=== PATIENT | male | born 1950 | race Caucasian/White ===

== ENCOUNTER 2016-08-30 13:12 | Inpatient (IN) ==
[2016-08-30] MEDS ORDERED: ENOXAPARIN 100 MG/ML SYRINGE SUBCUT STA (13:42)
[2016-08-30] MEDS ORDERED: ASPIRIN 325 MG TABLET PO STA (13:42)
[2016-08-30] MEDS ORDERED: NITROGLYCERIN 2% OINT 1 INCH/GM PACK TOP STA (13:42)
[2016-08-30] MEDS ORDERED: MORPHINE 2 MG/1 ML SYRINGE IV PRN (13:42)
[2016-08-30] MEDS ORDERED: ONDANSETRON 4 MG/2 ML VIAL IV PRN ×2 (13:42→16:32)
[2016-08-30] MEDS ORDERED: NITROGLYCERIN SL 0.4 MG TABLET SL PRN ×2 (13:42→16:39)
--- NOTE | 2016-08-30 13:46 | EKG Report ---
Stationary ECG Study [facility] ER Test Date: 08/30/2016 1:25:14 PM Pat Name: ATILIO NOLAN Department: Room: 285 Gender: M Assembler Surgical Garment: Martin Tabares : 1950 Requested by: Ty Cordero Order Number: [id number] Reading MD: TREVON MEJIA Intervals [place] Rate: 56 P: 64 W[place]: 194 QRS: 94 QRSD: 99 T: 102 QT: 441 QTc: 434 Interpretive Statements SINUS BRADYCARDIA MODERATE RIGHT AXIS DEVIATION Electronically Signed On 08-31-16 08:59:34 CDT by TREVON MEJIA [email or web address]
--- NOTE | 2016-08-30 14:02 | XRay Report ---
XR chest 2V Indication: Chest pain. Comparison: Chest x-ray 12/13/2015. Technique: PA and lateral chest x-ray was performed. Findings: The heart size appears within normal limits. Previous sternotomy is demonstrated. Pulmonary vasculature demonstrates no specific abnormality. Hilar structures demonstrate fairly symmetric appearance. The lungs appear clear. Bones and soft tissues demonstrate no evidence of acute pathology. Impression: 1. No active cardiopulmonary disease. 08/30/2016 1:59 PM PROCEDURE INTERPRETED AT [facility] DEPARTMENT OF RADIOLOGY Final Report Signed by: Dr. Gómez Maravilla
--- NOTE | 2016-08-30 14:07 | Emergency Department Note ---
Cee King Hilary, am scribing for, and in the presence of, Ty Robbins MD 13: 51. Itzel King James D, MD, personally performed the services described in this documentation, ascribed by Ana Mike in my presence, and it is both accurate and complete . Arrival - Arrival Chief Complaint: Chest Pain Stated Complaint: chest pain ED Nursing Triage Note: Left sided chest pain onset x 3 days with radiation to left side of neck - pt states that this is the same pain that he had when he had his stents placed per Dr Spears. Took 3 nitro [employer] Mode of Arrival: Ambulatory Limitations: No Limitations Source: Patient, RN Notes Reviewed Time Seen by Provider: 08/30/16 13:38 - History of Present Illness HPI Narrative: Pt is a 66 y/o white male presenting to the ED with c/o chest pain which onset 3 days ago. Pt reports that he picked up something heavy and just assumed he pulled a muscle but then the pain started to radiate to the left side of neck; which is the same pain that he felt when he had his stents placed in per Dr. Spears. He confirms nausea, SOB, chest pain but denies vomiting. Pt has a PMHx of HTN, CAD, Cardiovascular problems, Peripheral neuropathy, dyslipidemia, thyroid disorder, NIDDM. No other complaints or problems stated in the ED. Onset (ago): day(s) Allergies/Adverse Reactions: Allergies Allergy/AdvReac Type Severity Reaction Status Date / Time Neuromuscular Blockers, AdvReac Intermediate Irritable Verified 08/25/14 08:41 Steroidal [Steroidal Neuromuscular Blockers] steroids Allergy Unknown Unknown/Unable Uncoded 08/26/15 07:02 to obtain Home Medications: Home Medications Medication Instructions Recorded Confirmed Type Aspirin [Ecotrin] 325 mg PO QAM 08/24/14 08/30/16 History Atorvastatin Calcium [Lipitor] 80 mg PO QPM 08/24/14 08/30/16 History Cinnamon Bark [Cinnamon] 500 mg PO BID 08/24/14 08/30/16 History Fluoxetine [PROzac] 20 mg PO QAM 08/24/14 08/30/16 History Fluticasone 50 Mcg Nasal [place] 2 spray BOTH NARES DAILY PRN 08/24/14 08/30/16 History [Flonase Nasal [place]] Furosemide 20 mg PO DAILY PRN 08/24/14 08/30/16 History Levothyroxine Tab [Synthroid Tab] 175 mcg PO DAILY@0700 08/24/14 08/30/16 History Losartan [Cozaar] 50 mg PO QPM 08/24/14 08/30/16 History Metformin HCl [Metformin HCl ER] 1,000 mg PO BID 08/24/14 08/30/16 History Multivitamin [Multivitamins] 1 each PO QAM 08/24/14 08/30/16 History Nitroglycerin Sl Tab [Nitrostat] 0.4 mg SL Q5M PRN 08/24/14 08/30/16 History Pregabalin [Lyrica] 75 mg PO QPM 08/24/14 08/30/16 History Terazosin [Hytrin] 2 mg PO BEDTIME 08/24/14 08/30/16 History Zolpidem Tartrate [Ambien] 10 mg PO BEDTIME PRN 08/24/14 08/30/16 History glipiZIDE [Glipizide Xl] 5 mg PO AC BREAKFAST 08/24/14 08/30/16 History Potassium Chloride [Klor-Con 8] 8 meq PO DIRECTED PRN 08/26/15 08/30/16 History Metoprolol Tartrate 25 mg PO BID 12/13/15 08/30/16 History [place]-3 Fatty Acids [Fish Oil] 1,000 mg PO BID 12/13/15 08/30/16 History Benzonatate 100 mg PO BID PRN 08/30/16 08/30/16 History Cetirizine/Pseudoephed 5-120 1 tablet PO DAILY PRN 08/30/16 08/30/16 History [ZyrTEC D Tab] Clopidogrel [Plavix] 75 mg PO QAM 08/30/16 08/30/16 History Pseudoephedrine [Sudafed] 30 mg PO Q4-6H PRN 08/30/16 08/30/16 History Review of System - Review of System 12 point system: reviewed and no additional remarkable complaints except as stated - Review of System Constitutional: Absent: diaphoresis, fever Respiratory: Present: respiratory distress (SOB) Cardiovascular: Present: chest pain Gastrointestinal: Present: nausea. Absent: vomiting Medical,Surgical,& Family Hx - Medical History Cardio: History of: CAD, Hypertension, Cardiovascular Problems Neurology: History of: Peripheral Neuropathy No history of: Seizures HEENT: No history of: Glaucoma Endocrine: History of: Diabetes Mellitus (NIDDM), Dyslipidemia, Thyroid Disorder Respiratory: History of: Obstructive Sleep Apnea (uses bipap) Genitourinary: History of: Prostate Problems (bph) Gastrointestinal: History of: GERD, Polyps Musculoskeletal: History of: Back/Neck Problems (back problems, degenerative disk disease) Other: No history of: Anesthesia Reactions - Surgical History Cardiac Surgeries: Sugical HX of: Cardiac Catheterization, Cardiac Surgery ( ptca with stent, cabg in 2002) HEENT Surgeries: Surgical HX of: Thyroid Surgery (thyroidectomy - goiter) Patient denies: Eye Surgery, Tonsilectomy & Adenoidectomy Abdominal Surgeries: Surgical HX of: Cholecystectomy, Colonoscopy, EGD Patient denies: Appendectomy Reproductive Surgeries: Patient denies;: Genitourinary Surgery Orthopedic Surgeries: Patient denies;: Orthopedic Surgery - Family History Family History: Reports;: Family Cancer (uncle-colon) - Social History Smoking Status: Former smoker Frequency of Alcohol Use: None Type of Drug Use: None Functional capacity: independent ambulation Exam Physical Examination: GENERAL: This is well-developed, in no apparent distress. VITAL SIGNS: Temperature: 97.4 Pulse: 62 Respiratory: 20 Blood Pressure : 117/80 O2Sat: 98 HEENT: Head is normocephalic and atraumatic. Pupils are equally round and reactive to light. Extraocular movement are intact. Oropharynx is benign with moist mucous membranes. NECK: Neck is soft and supple without tenderness. There are no masses. There is no lymphadenopathy. LUNGS: Lungs are clear to auscultation bilaterally. Chest rises symmetrically. There is no chest wall tenderness. CV: Heart is regular rate and rhythm without murmurs, rubs, or gallops. ABDOMEN: Abdomen is soft, non-tender to palpation. There are no abnormal masses palpated. There is no organomegaly. Bowel sounds are present and active. SKIN: Skin is warm and dry. No rash. EXTREMITIES: Patient has full range of motion without tenderness. There is no pedal edema. NEUROLOGIC: Awake, alert, and oriented x4. Cranial nerves II through XII are grossly intact. There are no motorsensory deficits. PSYCHIATRIC: Normal affect. Normal mood. Vital Signs: Vital Signs Temperature 97.4 F L 08/30/16 13:19 Pulse Rate 62 08/30/16 13:19 Respiratory Rate 20 08/30/16 13:19 Blood Pressure 117/80 08/30/16 13:19 O2 Sat by Pulse Oximetry 98 08/30/16 13:19 Course - Consultations Consultation #1: Discussed with Dr. Coles. He will see the patient in the emergency department. Time: 15:24 Results - Labs CBC & BMP: 08/30/16 14:00 08/30/16 14:00 Lab Results: I have reviewed the patients labs Labs: Laboratory Tests 08/30/16 08/30/16 14:00 14:00 WBC 6.2 RBC 3.72 L Hgb 11.6 L Hct 34.1 L Urine Color Yellow Urine Appearance Clear Urine Urobilinogen < 2.0 H Laboratory Tests 08/30/16 14:00 Sodium 141 Potassium 4.3 Chloride 106 Carbon Dioxide 27 Glucose 128 H Total Protein 6.3 L - EKG EKG results: interpreted by ERMD - Impressions EKG: Sinus bradycardia with a rate of 56, right axis deviation, nonspecific ST- T wave changes. - Diagnostic Findings Procedure: Chest x-ray: image reviewed by me (No infiltrates, no pleural effusions.) Disposition Clinical Impression: Chest pain, Coronary artery disease, Essential hypertension Case discussed with: patient Disposition: Still a Patient Condition: Stable
[2016-08-30] MEDS ORDERED: ENOXAPARIN 120 MG/0.8 ML SYRINGE SUBCUT ONE (14:11)
[2016-08-30] MEDS ORDERED: NITROGLYCERIN 2% OINT 1 INCH/GM PACK TOP ONE (14:11)
[2016-08-30] MEDS ORDERED: ASPIRIN 325 MG TABLET ONE (14:11)
[2016-08-30 14:21] LABS: Basophils % 0.5 % (0.0-0.8); Eosinophils # 0.3 10*3/uL (0.0-0.87); Eosinophils % 5.3 % (0.00-10.9); Hematocrit 34.1 VOL% (42.0-52.0); Hemoglobin 11.6 GM/DL (14.0-18.0); Immature Granulocytes % 0.6 %; Immature Granulocytes Absolute 0.04 #; Lymphocytes # 2.1 10*3/uL (1.4-4.0); Lymphocytes % 33.9 % (21.2-54.2); Mean Corpuscular Hemoglobin 31 PG (27-34); Mean Corpuscular Volume 91.7 FL (87-102); Mean Platelet Volume 10.7 FL (9.6-12.0); Monocytes # 0.4 10*3/uL (0.11-0.8); Monocytes % 6.9 % (1.7-12.7); Neutrophils # 3.3 10*3/uL (1.4-7.4); Neutrophils % 52.8 % (38.7-73.9); Platelet Count 225 T/CUMM (130-400); Red Blood Count 3.72 MC/CUMM (3.8-5.5); Red Cell Distribution Width 12.7 % (9.3-17.3); White Blood Count 6.2 T/CUMM (4-12)
[2016-08-30 14:26] LABS: Apearance,Urine CLEAR (Clear); Bilirubin,Urine Negative (Negative); Blood, Urine Negative (Negative); Glucose,Urine (UA) Negative (Negative); Ketones,Urine Negative (Negative); Nitrite,Urine Negative (Negative); Protein,Urine Negative; RBC,Urine <1 /HPF (0-4); Urine Color Yellow (Yellow); Urine Specific Gravity 1.011 (1.001-1.035); Urine Urobilinogen < 2.0 EU/DL (0.2-1.0); WBC,Urine <1 /HPF (0-6)
[2016-08-30 14:31] LABS: PT Patient Result 10.5 SECS; Partial Thromboplastin Time 25.3 SECS (0-40)
[2016-08-30 14:43] LABS: Alanine Aminotransferase 57 U/L (16-61); Albumin 3.6 G/DL (3.4-5.0); Alkaline Phosphatase 81 U/L (45-117); Aspartate Amino Transferase 26 U/L (0-37); Bilirubin,Total < 0.39 MG/DL (0.2-1.0); Blood Urea Nitrogen 8 MG/DL (7-18); Calcium 8.9 MG/DL (8.5-10.1); Glucose 128 MG/DL (74-106); Magnesium 1.8 MG/DL (1.8-2.4); Osmolality,Calculated 280.3 MOS/KG (273-304); Potassium 4.3 MMOL/L (3.5-5.1); Sodium 141 MMOL/L (136-145); Total Protein 6.3 G/DL (6.4-8.3)
--- NOTE | 2016-08-30 16:31 | Cardiology History & Physical ---
Assessment and Plan - Time spent with patient Time spent with patient: Greater than 30 minutes (Exam interview film review discussed with Dr. Spears orders etc.) (1) Dyslipidemia Status: Chronic Current Visit: Yes (2) Obesity (BMI 30.0-34.9) Status: Chronic Current Visit: Yes (3) Obstructive sleep apnea Status: Chronic Current Visit: Yes (4) Coronary stent restenosis Status: Chronic Assessment and plan: This patient says in-stent restenosis more than once. Based on this and the fact that he is approximately 8 months status post stenting I think that he would need repeat left heart catheterization although his symptoms sound somewhat atypical. In-stent restenosis is possible explanation for his symptoms and has recurred in the past. Current Visit: Yes (5) Chest pain Status: Acute Current Visit: Yes Qualifiers: Ischemic chest pain type: unspecified angina pectoris type (6) Coronary artery disease Status: Chronic Current Visit: Yes Qualifiers: Coronary Disease-Associated Artery/Lesion type: [place] artery [place] vs. transplanted heart: [place] heart Associated angina: with unstable angina Qualified Code(s): I25.110 - Atherosclerotic heart disease of [place] coronary artery with unstable angina pectoris (7) Essential hypertension Status: Chronic Current Visit: Yes History of Present Illness Chief complaint: Chest pain and nausea History of present illness: Mr. Crockett is a 66 year old male with history of coronary artery disease. He has a history of coronary bypass grafting after in-stent restenosis. The patient recently had in-stent restenosis of the mid LAD stent has a stent and stent at that area I think this is the area that most likely was in-stent restenosis was present before. The patient is now approximately 8 months after this in-stent restenosis. He comes in complaining of left shoulder pain that he describes as a squeezing pain that occurs in his left shoulder is occurred 3 times in the last 4 days he thought it was after picking up a weight put on the front of his 's tractor that had caused it and did not really worry about it the first time until he got progressively worse and he got slightly "queasy" he took a nitroglycerin did not help he ultimately took a few aspirin and went to sleep it is occurred to additional time since that time and today it got worse he was more nauseated and took 3 nitroglycerin. He has not really sure that that helped much. He was concerned because he again had this "queasy" feeling and subsequently came to the emergency room for further evaluation. Again he has had in-stent restenosis recurrent in the past and now is approximately 8 months status post PCI with MARILIN for in-stent restenosis of the LAD. I examined the patient in the emergency room. His family was present. They are extremely concerned about his heart. Home Medications Medication Instructions Recorded Confirmed Type Aspirin [Ecotrin] 325 mg PO QAM 08/24/14 08/30/16 History Atorvastatin Calcium [Lipitor] 80 mg PO QPM 08/24/14 08/30/16 History Cinnamon Bark [Cinnamon] 500 mg PO BID 08/24/14 08/30/16 History Fluoxetine [PROzac] 20 mg PO QAM 08/24/14 08/30/16 History Fluticasone 50 Mcg Nasal [place] 2 spray BOTH NARES DAILY PRN 08/24/14 08/30/16 History [Flonase Nasal [place]] Furosemide 20 mg PO DAILY PRN 08/24/14 08/30/16 History Levothyroxine Tab [Synthroid Tab] 175 mcg PO DAILY@0700 08/24/14 08/30/16 History Losartan [Cozaar] 50 mg PO QPM 08/24/14 08/30/16 History Metformin HCl [Metformin HCl ER] 1,000 mg PO BID 08/24/14 08/30/16 History Multivitamin [Multivitamins] 1 each PO QAM 08/24/14 08/30/16 History Nitroglycerin Sl Tab [Nitrostat] 0.4 mg SL Q5M PRN 08/24/14 08/30/16 History Pregabalin [Lyrica] 75 mg PO QPM 08/24/14 08/30/16 History Terazosin [Hytrin] 2 mg PO BEDTIME 08/24/14 08/30/16 History Zolpidem Tartrate [Ambien] 10 mg PO BEDTIME PRN 08/24/14 08/30/16 History glipiZIDE [Glipizide Xl] 5 mg PO AC BREAKFAST 08/24/14 08/30/16 History Potassium Chloride [Klor-Con 8] 8 meq PO DIRECTED PRN 08/26/15 08/30/16 History Metoprolol Tartrate 25 mg PO BID 12/13/15 08/30/16 History [place]-3 Fatty Acids [Fish Oil] 1,000 mg PO BID 12/13/15 08/30/16 History Benzonatate 100 mg PO BID PRN 08/30/16 08/30/16 History Cetirizine/Pseudoephed 5-120 1 tablet PO DAILY PRN 08/30/16 08/30/16 History [ZyrTEC D Tab] Clopidogrel [Plavix] 75 mg PO QAM 08/30/16 08/30/16 History Pseudoephedrine [Sudafed] 30 mg PO Q4-6H PRN 08/30/16 08/30/16 History Allergies Allergy/AdvReac Type Severity Reaction Status Date / Time Neuromuscular Blockers, AdvReac Intermediate Irritable Verified 08/25/14 08:41 Steroidal [Steroidal Neuromuscular Blockers] steroids Allergy Unknown Unknown/Unable Uncoded 08/26/15 07:02 to obtain - Constitutional Constitutional: Present: stops breathing during sleep. Absent: anorexia, chills , night sweats - EENT Eyes: Absent: blurry vision, diplopia Ears: Absent: ear pain Nose, mouth and throat: Present: throat swelling. Absent: dysphagia, epistaxis , headache(s), neck mass, neck pain, tongue swelling - Cardiovascular Cardiovascular: Present: chest pain at rest, dyspnea, dyspnea on exertion. Absent: chest pain with activity, edema, orthopnea, palpitations - Respiratory Respiratory: Present: dyspnea, dyspnea on exertion. Absent: cough - Gastrointestinal Gastrointestinal: Present: loose stools. Absent: abdominal pain, constipation, dyspepsia - Genitourinary Genitourinary: Absent: difficulty urinating - Musculoskeletal Musculoskeletal: Absent: arthralgias, joint swelling - Neurological Neurological: Absent: confusion, disequilibrium, dizziness, focal weakness, frequent falls, headache(s) - Psychiatric Psychiatric: Absent: anxiety, depression Medical,Surgical,& Family Hx - Medical History Cardio: History of: CAD (History of in-stent restenosis and PCI of the LAD), Hypertension, Cardiovascular Problems Neurology: History of: Peripheral Neuropathy No history of: Seizures HEENT: No history of: Glaucoma Endocrine: History of: Diabetes Mellitus (NIDDM), Dyslipidemia, Thyroid Disorder Respiratory: History of: Obstructive Sleep Apnea (uses bipap) Genitourinary: History of: Prostate Problems (bph) Gastrointestinal: History of: GERD, Polyps Musculoskeletal: History of: Back/Neck Problems (back problems, degenerative disk disease) Other: No history of: Anesthesia Reactions - Surgical History Cardiac Surgeries: Sugical HX of: Cardiac Catheterization, Cardiac Surgery ( ptca with stent, cabg in 2003 (all occluded)) HEENT Surgeries: Surgical HX of: Thyroid Surgery (thyroidectomy - goiter) Patient denies: Eye Surgery, Tonsilectomy & Adenoidectomy Abdominal Surgeries: Surgical HX of: Cholecystectomy, Colonoscopy, EGD Patient denies: Appendectomy Reproductive Surgeries: Patient denies;: Genitourinary Surgery Orthopedic Surgeries: Patient denies;: Orthopedic Surgery - Family History Family History: Reports;: Family Cancer (uncle-colon) - Social History Smoking Status: Former smoker Frequency of Alcohol Use: None Type of Drug Use: None Marital Status: Lives With:: Spouse Functional capacity: independent ambulation Cardiology Physical Exam - Constitutional Vitals: Vital Signs Temp Pulse Resp BP Pulse Ox 97.4 F L 63 18 108/74 98 08/30/16 13:19 08/30/16 15:30 08/30/16 15:30 08/30/16 15:30 08/30/16 15:30 Intake and Output 08/30/16 08/30/16 08/30/16 07:59 15:59 23:59 Other: Weight 116.12 kg Patient Weight 08/30/16 23:59 Weight 116.12 kg General appearance: over weight - Head Head exam: Present: normal inspection - Eye Eye exam: Present: EOMI Pupils: Present: BARBY - ENT ENT exam: Present: normal exam - Neck Neck exam: Present: normal inspection, other (mild assymetry to the thyroid exam (slightly more prominent on the left)) - Respiratory Respiratory exam: Present: clear to auscultation bilaterally - Cardiovascular Cardiovascular exam: Present: regular rate and rhythm - GI/Abdominal GI/Abdominal exam: Present: normal bowel sounds - Extremities Exam Extremities exam: Present: normal inspection - Back Exam Back exam: Present: normal inspection - Neurological Exam Neurological exam: Present: alert, oriented X3 - Psychiatric Psychiatric exam: Present: normal affect - Skin Skin exam: Present: normal color, warm Result/EKG - Labs CBC & BMP: 08/30/16 14:00 08/30/16 14:00 Labs: Laboratory Results - last 24 hr 08/30/16 08/30/16 08/30/16 14:00 14:00 14:00 WBC RBC Hgb Hct MCV MCH MCHC RDW Plt Count MPV Neut % (Auto) Lymph % (Auto) [place] % (Auto) Eos % (Auto) Baso % (Auto) Neut # (Auto) Lymph # (Auto) [place] # (Auto) Eos # (Auto) Baso # (Auto) Immature Gran % Nucleated RBC % Immature Gran # Nucleated RBCs # INR 1.0 PT Patient/Control Mix 10.5 Circ Anticoag PTT 25.3 Sodium 141 Potassium 4.3 Chloride 106 Carbon Dioxide 27 Anion Gap 12.3 BUN 8 Creatinine 0.90 GFR Calculation 120 BUN/Creatinine Ratio 8.00 Glucose 128 H Calculated Osmolality 280.3 Calcium 8.9 Magnesium 1.8 Total Bilirubin < 0.39 AST 26 ALT 57 Alkaline Phosphatase 81 Troponin I Total Protein 6.3 L Albumin 3.6 Globulin 2.7 Albumin/Globulin Ratio 1.3 Urine Color Yellow Urine Appearance Clear Urine pH 6.0 Ur Specific [place] 1.011 Urine Protein Negative Urine Glucose (UA) Negative Urine Ketones Negative Urine Blood Negative Urine Nitrate Negative Urine Bilirubin Negative Urine Urobilinogen < 2.0 H Urine Leukocytes Negative Urine RBC <1 Urine WBC <1 Ur Culture Indicated? Not indicated 08/30/16 08/30/16 14:00 14:00 WBC 6.2 RBC 3.72 L Hgb 11.6 L Hct 34.1 L MCV 91.7 MCH 31 MCHC 34.0 RDW 12.7 Plt Count 225 MPV 10.7 Neut % (Auto) 52.8 Lymph % (Auto) 33.9 [place] % (Auto) 6.9 Eos % (Auto) 5.3 Baso % (Auto) 0.5 Neut # (Auto) 3.3 Lymph # (Auto) 2.1 [place] # (Auto) 0.4 Eos # (Auto) 0.3 Baso # (Auto) 0.0 Immature Gran % 0.6 Nucleated RBC % 0.0 Immature Gran # 0.04 Nucleated RBCs # 0.00 INR PT Patient/Control Mix Circ Anticoag PTT Sodium Potassium Chloride Carbon Dioxide Anion Gap BUN Creatinine GFR Calculation BUN/Creatinine Ratio Glucose Calculated Osmolality Calcium Magnesium Total Bilirubin AST ALT Alkaline Phosphatase Troponin I < 0.015 Total Protein Albumin Globulin Albumin/Globulin Ratio Urine Color Urine Appearance Urine pH Ur Specific [place] Urine Protein Urine Glucose (UA) Urine Ketones Urine Blood Urine Nitrate Urine Bilirubin Urine Urobilinogen Urine Leukocytes Urine RBC Urine WBC Ur Culture Indicated? - EKG EKG results: interpreted by me (right axis deviation otherwise nl)
[2016-08-30] MEDS ORDERED: MAGNESIUM SULF RIDER 2 GM in PREMIX 1 EACH IV PRN ×2 (16:32→16:41)
[2016-08-30] MEDS ORDERED: POTASSIUM CHLORIDE RIDER 10 MEQ in PREMIX 1 EACH IV PRN ×2 (16:32→16:41)
[2016-08-30] MEDS ORDERED: MAGNESIUM SULF RIDER 4 GM in PREMIX 1 EACH IV PRN (16:32)
[2016-08-30] MEDS ORDERED: ZALEPLON 5 MG CAPSULE PO PRN ×2 (16:32→21:00)
[2016-08-30] MEDS ORDERED: POTASSIUM CHLORIDE 8 MEQ CAPSULE PO PRN (16:39)
[2016-08-30] MEDS ORDERED: FUROSEMIDE 20 MG TABLET PO PRN (16:39)
[2016-08-30] MEDS ORDERED: BENZONATATE 100 MG CAPSULE PO PRN (16:39)
[2016-08-30] MEDS ORDERED: FLUTICASONE 50 MCG NASAL SPRAY 16 GM BOTTLE BOTH NARES PRN (16:39)
[2016-08-30] MEDS ORDERED: DIAZEPAM 5 MG TABLET PO ONE (16:41)
[2016-08-30] MEDS ORDERED: ENOXAPARIN 40 MG/0.4 ML SYRINGE SUBCUT SCH (18:30)
[2016-08-30] MEDS: PANTOPRAZOLE 40 MG TABLET PO SCH (18:35)
[2016-08-30] MEDS ORDERED: CETIRIZINE 10 MG TABLET PO PRN (18:36)
[2016-08-30] MEDS ORDERED: PSEUDOEPHEDRINE 30 MG TABLET PO PRN (18:37)
[2016-08-30] MEDS: OMEGA 3 ACID ETHYL ESTERS 1 GM CAPSULE PO SCH (20:34)
[2016-08-30] MEDS: METOPROLOL TARTRATE 25 MG TABLET PO SCH (20:35)
[2016-08-30] MEDS: ACETAMINOPHEN 325 MG TABLET PO PRN (20:35)
[2016-08-30] MEDS: INSULIN REGULAR 100 UNIT/ML SUBCUT SCH (20:38)
[2016-08-30] MEDS ORDERED: PREGABALIN 75 MG CAPSULE PO SCH (21:00)
[2016-08-30] MEDS ORDERED: LOSARTAN 50 MG TABLET PO SCH (21:00)
[2016-08-30] MEDS ORDERED: CINNAMON BARK PO SCH (21:00)
[2016-08-30] MEDS ORDERED: ATORVASTATIN 80 MG TABLET PO SCH (21:00)
[2016-08-30] MEDS ORDERED: TERAZOSIN 2 MG CAPSULE PO SCH (21:00)
[2016-08-30] MEDS: CILOSTAZOL 100 MG TABLET PO SCH (21:29)
[2016-08-31 04:56] LABS: Basophils % 0.6 % (0.0-0.8); Eosinophils # 0.3 10*3/uL (0.0-0.87); Eosinophils % 4.6 % (0.00-10.9); Hematocrit 31.7 VOL% (42.0-52.0); Hemoglobin 10.7 GM/DL (14.0-18.0); Immature Granulocytes % 0.5 %; Immature Granulocytes Absolute 0.03 #; Lymphocytes # 2.5 10*3/uL (1.4-4.0); Lymphocytes % 38.5 % (21.2-54.2); Mean Corpuscular HGB Conc 33.8 GM/DL (32-36); Mean Corpuscular Hemoglobin 31 PG (27-34); Mean Corpuscular Volume 91.4 FL (87-102); Mean Platelet Volume 10.8 FL (9.6-12.0); Monocytes # 0.5 10*3/uL (0.11-0.8); Monocytes % 8.1 % (1.7-12.7); Neutrophils # 3.1 10*3/uL (1.4-7.4); Neutrophils % 47.7 % (38.7-73.9); Platelet Count 191 T/CUMM (130-400); Red Blood Count 3.47 MC/CUMM (3.8-5.5); Red Cell Distribution Width 12.8 % (9.3-17.3); White Blood Count 6.5 T/CUMM (4-12)
[2016-08-31 05:31] LABS: Calcium 8.5 MG/DL (8.5-10.1); Potassium 3.9 MMOL/L (3.5-5.1); Risk Ratio 2.64; VLDL CHOLESTEROL 29.4 MG/DL
[2016-08-31] MEDS: LEVOTHYROXINE 175 MCG TABLET PO SCH ×2 (06:29→09:00)
--- NOTE | 2016-08-31 07:31 | EKG Report ---
Stationary ECG Study [facility] Test Date: 08/31/2016 7:06:05 AM Pat Name: ATILIO NOLAN Department: Room: 285 Gender: M Handyperson: MONICA : 1950 Requested by: Pamela Chong Order Number: [id number] Reading MD: TREVON MEJIA Intervals [place] Rate: 60 P: 52 [place]: 196 QRS: 106 QRSD: 102 T: 106 QT: 434 QTc: 434 Interpretive Statements SINUS RHYTHM MARKED RIGHT AXIS DEVIATION NONSPECIFIC T-WAVE ABNORMALITY Electronically Signed On 08-31-16 09:09:31 CDT by TREVON MEJIA [email or web address]
[2016-08-31] MEDS ORDERED: SODIUM CHLORIDE 0.45% 1,000 ML IV SCH (08:00)
[2016-08-31] MEDS: INSULIN REGULAR 100 UNIT/ML SUBCUT SCH ×3 (08:44→18:05)
[2016-08-31] MEDS: OMEGA 3 ACID ETHYL ESTERS 1 GM CAPSULE PO SCH (08:58)
[2016-08-31] MEDS: METOPROLOL TARTRATE 25 MG TABLET PO SCH (08:58)
[2016-08-31] MEDS: CILOSTAZOL 100 MG TABLET PO SCH (08:59)
[2016-08-31] MEDS: PANTOPRAZOLE 40 MG TABLET PO SCH (08:59)
[2016-08-31] MEDS ORDERED: ASPIRIN EC 81 MG TABLET PO SCH (09:00)
[2016-08-31] MEDS ORDERED: FLUoxetine 20 MG CAPSULE PO SCH (09:00)
[2016-08-31] MEDS ORDERED: MULTIVITAMIN (CENTRUM) TABLET PO SCH (09:00)
[2016-08-31] MEDS ORDERED: CLOPIDOGREL 75 MG TABLET PO SCH (09:00)
[2016-08-31] MEDS: ACETAMINOPHEN 325 MG TABLET PO PRN (10:44)
--- NOTE | 2016-08-31 10:55 | Cardiology Progress Note ---
Assessment and Plan (1) Dyslipidemia Status: Chronic Current Visit: Yes (2) Obesity (BMI 30.0-34.9) Status: Chronic Current Visit: Yes (3) Obstructive sleep apnea Status: Chronic Current Visit: Yes (4) Coronary stent restenosis Status: Chronic Assessment and plan: This patient says in-stent restenosis more than once. Based on this and the fact that he is approximately 8 months status post stenting I think that he would need repeat left heart catheterization although his symptoms sound somewhat atypical. In-stent restenosis is possible explanation for his symptoms and has recurred in the past. Current Visit: Yes (5) Chest pain Status: Acute Current Visit: Yes Qualifiers: Ischemic chest pain type: unspecified angina pectoris type (6) Coronary artery disease Status: Chronic Current Visit: Yes Qualifiers: Coronary Disease-Associated Artery/Lesion type: [place] artery [place] vs. transplanted heart: [place] heart Associated angina: with unstable angina Qualified Code(s): I25.110 - Atherosclerotic heart disease of [place] coronary artery with unstable angina pectoris (7) Essential hypertension Status: Chronic Current Visit: Yes Cardiology - PN: Subj Interval history: Mr. Crockett that he developed some more discomfort in his left upper chest last night. His biomarkers are negative. I reviewed his films and his high probability for LAD disease particularly in standard in segment restenosis. He is scheduled for left heart catheterization later today by Dr. Spears. I told him that if if the cath looks good we will anticipate discharge later today if there is PCI anticipate discharge tomorrow. None of his grafts are patent. Exam (Progress Note) - Constitutional Vitals: Period Temp Pulse Resp BP Sys/Alvarez Pulse Ox Last 24 Hr 96.4 F-98.2 F 55-69 18-20 95-133/50-80 94-100 General appearance: over weight - Eye Eye exam: Present: EOMI - ENT ENT exam: Present: normal exam - Respiratory Respiratory exam: Present: clear to auscultation bilaterally - Cardiovascular Cardiovascular exam: Present: regular rate and rhythm - GI/Abdominal GI/Abdominal exam: Present: normal bowel sounds - Extremities Exam Extremities exam: Present: normal inspection - Back Exam Back exam: Present: normal inspection - Neurological Exam Neurological exam: Present: alert, oriented X3 - Psychiatric Psychiatric exam: Present: normal affect, normal mood - Skin Skin exam: Present: normal color, warm Result/EKG - Labs CBC & BMP: 08/31/16 04:10 08/31/16 04:10 Labs: Laboratory Results - last 24 hr 08/30/16 08/30/16 08/30/16 14:00 14:00 14:00 WBC RBC Hgb Hct MCV MCH MCHC RDW Plt Count MPV Neut % (Auto) Lymph % (Auto) [place] % (Auto) Eos % (Auto) Baso % (Auto) Neut # (Auto) Lymph # (Auto) [place] # (Auto) Eos # (Auto) Baso # (Auto) Immature Gran % Nucleated RBC % Immature Gran # Nucleated RBCs # INR 1.0 PT Patient/Control Mix 10.5 Circ Anticoag PTT 25.3 Sodium 141 Potassium 4.3 Chloride 106 Carbon Dioxide 27 Anion Gap 12.3 BUN 8 Creatinine 0.90 GFR Calculation 120 BUN/Creatinine Ratio 8.00 Glucose 128 H POC Glucose Calculated Osmolality 280.3 Calcium 8.9 Magnesium 1.8 Total Bilirubin < 0.39 AST 26 ALT 57 Alkaline Phosphatase 81 Troponin I Total Protein 6.3 L Albumin 3.6 Globulin 2.7 Albumin/Globulin Ratio 1.3 Triglycerides Cholesterol LDL Cholesterol VLDL Cholesterol HDL Cholesterol Heart Disease Risk Ratio Urine Color Yellow Urine Appearance Clear Urine pH 6.0 Ur Specific [place] 1.011 Urine Protein Negative Urine Glucose (UA) Negative Urine Ketones Negative Urine Blood Negative Urine Nitrate Negative Urine Bilirubin Negative Urine Urobilinogen < 2.0 H Urine Leukocytes Negative Urine RBC <1 Urine WBC <1 Ur Culture Indicated? Not indicated 08/30/16 08/30/16 08/30/16 14:00 14:00 19:12 WBC 6.2 RBC 3.72 L Hgb 11.6 L Hct 34.1 L MCV 91.7 MCH 31 MCHC 34.0 RDW 12.7 Plt Count 225 MPV 10.7 Neut % (Auto) 52.8 Lymph % (Auto) 33.9 [place] % (Auto) 6.9 Eos % (Auto) 5.3 Baso % (Auto) 0.5 Neut # (Auto) 3.3 Lymph # (Auto) 2.1 [place] # (Auto) 0.4 Eos # (Auto) 0.3 Baso # (Auto) 0.0 Immature Gran % 0.6 Nucleated RBC % 0.0 Immature Gran # 0.04 Nucleated RBCs # 0.00 INR PT Patient/Control Mix Circ Anticoag PTT Sodium Potassium Chloride Carbon Dioxide Anion Gap BUN Creatinine GFR Calculation BUN/Creatinine Ratio Glucose POC Glucose Calculated Osmolality Calcium Magnesium Total Bilirubin AST ALT Alkaline Phosphatase Troponin I < 0.015 < 0.015 Total Protein Albumin Globulin Albumin/Globulin Ratio Triglycerides Cholesterol LDL Cholesterol VLDL Cholesterol HDL Cholesterol Heart Disease Risk Ratio Urine Color Urine Appearance Urine pH Ur Specific [place] Urine Protein Urine Glucose (UA) Urine Ketones Urine Blood Urine Nitrate Urine Bilirubin Urine Urobilinogen Urine Leukocytes Urine RBC Urine WBC Ur Culture Indicated? 08/30/16 08/30/16 08/31/16 20:32 22:32 04:10 WBC 6.5 RBC 3.47 L Hgb 10.7 L Hct 31.7 L MCV 91.4 MCH 31 MCHC 33.8 RDW 12.8 Plt Count 191 MPV 10.8 Neut % (Auto) 47.7 Lymph % (Auto) 38.5 [place] % (Auto) 8.1 Eos % (Auto) 4.6 Baso % (Auto) 0.6 Neut # (Auto) 3.1 Lymph # (Auto) 2.5 [place] # (Auto) 0.5 Eos # (Auto) 0.3 Baso # (Auto) 0.0 Immature Gran % 0.5 Nucleated RBC % 0.0 Immature Gran # 0.03 Nucleated RBCs # 0.00 INR PT Patient/Control Mix Circ Anticoag PTT Sodium Potassium Chloride Carbon Dioxide Anion Gap BUN Creatinine GFR Calculation BUN/Creatinine Ratio Glucose POC Glucose 177 H Calculated Osmolality Calcium Magnesium Total Bilirubin AST ALT Alkaline Phosphatase Troponin I < 0.015 Total Protein Albumin Globulin Albumin/Globulin Ratio Triglycerides Cholesterol LDL Cholesterol VLDL Cholesterol HDL Cholesterol Heart Disease Risk Ratio Urine Color Urine Appearance Urine pH Ur Specific [place] Urine Protein Urine Glucose (UA) Urine Ketones Urine Blood Urine Nitrate Urine Bilirubin Urine Urobilinogen Urine Leukocytes Urine RBC Urine WBC Ur Culture Indicated? 08/31/16 08/31/16 04:10 07:37 WBC RBC Hgb Hct MCV MCH MCHC RDW Plt Count MPV Neut % (Auto) Lymph % (Auto) [place] % (Auto) Eos % (Auto) Baso % (Auto) Neut # (Auto) Lymph # (Auto) [place] # (Auto) Eos # (Auto) Baso # (Auto) Immature Gran % Nucleated RBC % Immature Gran # Nucleated RBCs # INR PT Patient/Control Mix Circ Anticoag PTT Sodium 143 Potassium 3.9 Chloride 107 Carbon Dioxide 27 Anion Gap 12.9 BUN 11 Creatinine 0.90 GFR Calculation 120 BUN/Creatinine Ratio 12.00 Glucose 121 H POC Glucose 163 H Calculated Osmolality 284.0 Calcium 8.5 Magnesium 2.0 Total Bilirubin AST ALT Alkaline Phosphatase Troponin I Total Protein Albumin Globulin Albumin/Globulin Ratio Triglycerides 147 Cholesterol 111 LDL Cholesterol 61.0 VLDL Cholesterol 29.4 HDL Cholesterol 42 Heart Disease Risk Ratio 2.64 Urine Color Urine Appearance Urine pH Ur Specific [place] Urine Protein Urine Glucose (UA) Urine Ketones Urine Blood Urine Nitrate Urine Bilirubin Urine Urobilinogen Urine Leukocytes Urine RBC Urine WBC Ur Culture Indicated?
[2016-08-31] MEDS ORDERED: LIDOCAINE 1%/EPI INJ 20 ML VIAL ONE (12:44)
[2016-08-31] MEDS ORDERED: HEPARIN/NACL 0.9% 2 UNITS/ML 1,000 ML IV ONE (12:44)
[2016-08-31] MEDS ORDERED: fentaNYL 100 MCG/2 ML VIAL ONE (12:56)
[2016-08-31] MEDS ORDERED: MIDAZOLAM 2 MG/2 ML VIAL ONE (12:56)
--- NOTE | 2016-08-31 12:58 | History and Physical Update ---
Sedation H&P Update - History and Physical H&P was reviewed, the patient examined and there: are no changes in the patients condition since last H&P was completed. - Sedation Plan for Sedation: moderate Patient Consent: Procedure disscussed with patient and patinet has consented., Risks and benefits were discussed with patient,including infection,, bleeding, injury to surrounding structures, seizure, temporary nerve, Patient understands and accepts potential risks/benefits and agrees to, proceed. ASA Class: III Airway Assessment: Class IV: Only hard palate visible
[2016-08-31] MEDS ORDERED: DIAZEPAM 5 MG TABLET PO ONE (13:00)
[2016-08-31] MEDS ORDERED: diphenhydrAMINE CAP 25 MG CAPSULE PO ONE (13:00)
--- NOTE | 2016-08-31 13:46 | Cardiac Catheterization ---
Date of Procedure:: 08/31/16 Pre-op Diagnosis: 66-year-old man who underwent stenting of an in-stent restenosis lesion of the proximal LAD roughly 8 months ago now with recurring chest pain negative isoenzymes Post-op diagnosis: same Procedure: Clinical summary: 66-year-old man is undergone prior coronary bypass grafting with a diagonal vein graft as well as an CATY graft to the LAD evaluated in December 2015 found to have closed grafts and a tight restenotic segment of the proximal LAD. This was treated with stenting of the restenotic segment with a good angiographic result. There appeared to be some non-stent expansion proximal in this stented segment. He is now with recurring chest pain for reevaluation. Procedures performed: Left heart catheterization Coronary arteriography Left ventriculography [Right] femoral sheath angiography Mynx closure femoral arteriotomy site After obtaining informed consent the patient was brought to the catheterization lab where the [right] groin was prepped and draped in the usual sterile manner. After intravenous sedation and local anesthesia a needle stick was made to the right femoral artery and a [6 [place] sheath] was positioned without difficulty. A left heart catheterization was undertaken using first a Venancio left diagnostic catheter. The catheter was advanced under fluoroscopy over a guidewire and positioned with its tip in the ostium of the left main coronary artery. Multiple angiograms were obtained of the left coronary artery in multiple views. After adequate angiogram to left coronary obtain this catheter was withdrawn and an AMRM right coronary catheter was advanced over a guidewire under fluoroscopic control where angiography of the right coronary artery was undertaken in multiple views. After adequate angiograms of the right coronary artery were obtained this catheter was withdrawn. A pigtail ventriculographic catheter was advanced over a guidewire under fluoroscopic control to the ascending aorta where it was advanced across the aortic valve and intraventricular hemodynamics were measured. A ventriculogram was obtained in the WAYNE projection and afterward a pullback was obtained from the ventricle to the aorta under hemodynamic monitoring and removed. At this point the patient underwent right femoral sheath angiography which demonstrated anatomy appropriate for Mynx closure. This was performed without difficulty and good hemostasis was obtained. The patient then was transferred back to the proctor having suffered no significant immediate complications. Hemodynamics: Please see the accompanying data sheet Coronary angiography: Left coronary artery: Left main coronary artery is well-developed and free of significant obstructing lesions. The circumflex coronary is a large nondominant vessel possesses no significant lesions through its course. The branches of the circumflex likewise are free of significant obstructing lesions. Left anterior descending coronary arteries large vessel extends to the apex of the ventricle. There is an intracoronary stent noted in the proximal portion of the LAD with second stent placed inside the first to treat restenosis. There appears to be a good lumen in this area. There is roughly a 40-50% residual stenosis which is what was noted after the last stent procedure. There is YAMILET grade III flow down the vessel without evidence of significant flow-limiting stenosis. The branches of the LAD likewise are free of significant obstructing lesions. Right coronary artery: Right coronary is a large dominant vessel possesses no significant lesions through its course. There is a lesion of the proximal right which is probably 40% flow-limiting. It does not appear to have progressed since his prior study. The branches of the right coronary likewise are free of significant obstructing lesions. Left ventriculography: Left ventricle is known to be of normal size with normal contractility. Mitral and aortic structures appear normal by ventriculogram. Ejection fraction is estimated to be in the 55% range. Right femoral sheath angiography: After injection of contrast right femoral arterial sheath appears in the common femoral above the bifurcation. No significant stenosis of the distal iliac, common femoral or bifurcation be noted based on this limited angiographic study. Conclusions: 1: Occluded diagonal and LAD grafts noted from prior angiographic study 2: No significant restenosis of the prior area of stenting with YAMILET grade III flow down the vessel and the roughly 40% residual stenosis which is similar to the final result noted at stent placement. 3: Mild stenotic disease of a large dominant right coronary for continued risk factor modification medical management 4: Minx closure right femoral arteriotomy site Discussion and recommendations: Patient presents with chest discomfort. He has negative isoenzymes and no evidence of significant EKG change his catheterization demonstrates changes that were noted at the end of procedure previously with 40% residual stenosis and a prior stented restenotic segment. It has not progressed significantly since the initial procedure. We are going to continue medical therapy and look for other etiologies of the patient's chest discomfort. Our findings have been reviewed with the patient and with his family. Surgeon / Physician: Isaiah Spears Estimated blood loss: minimal Specimens: none sent Condition: stable - Medications / Follow-up
--- NOTE | 2016-08-31 13:53 | Discharge Summary ---
<Isaiah Spears - Last Filed: 08/31/16 13:51> Hospital Course - Hospital Course Hospital Course: 66-year-old male with a history of remote coronary bypass grafting presents now roughly 8 months after stenting of a restenotic LAD stented area. The result was acceptable though not ideal at end procedure back in December 2015 the patient presents now with chest discomfort. He is now undergone repeat evaluation which demonstrates YAMILET grade III flow down the LAD and no significant residual stenosis. There is no evidence of restenosis at present. Our plan will be to continue him on current medications and see him for follow- up in 2 weeks for leg check. His hospital course otherwise has been stable. He is to continue his current medications and likely will be on Plavix indefinitely. Patient was seen and examined on the telemetry unit post catheterization. Patient is doing well and has been without complications. Vital signs are stable. Right groin is soft without bleeding, hematoma and bruit. Distal pulses present. If patient is without complications and right groin remains stable patient will be discharged around 5 PM. Patient has been given a follow- up appointment with Dr. Spears in 2 weeks for groin check. Right groin precautions have been reviewed with the patient. He verbalized understanding. Instructed patient to hold metformin for 48 hours prior to restarting. He may restart metformin on September 03. Patient is anxious for discharge home today. Having felt that patient has not maximal medical therapy, he will be discharged home in stable condition at 5 PM this evening. Specialty Discharge - Follow Up or Referrals Follow up with: Isaiah Spears MD [Physician] - 2 Weeks (Please schedule patient appointment for Dr. Spears in 2 weeks.) Discharge Plan - Discharge Data Disposition: Disch To Home/Self Care Condition at Discharge: Stable Discharge Diet: heart healthy Activity: other (As outlined on the post catheterization instruction sheet) - Discharge Medications New Aspirin EC Tab 81 mg PO DAILY #30 tablet Cilostazol [Pletal] 100 mg PO BID #60 tablet Continue Terazosin [Hytrin] 2 mg PO BEDTIME Nitroglycerin Sl Tab [Nitrostat] 0.4 mg SL Q5M PRN PRN Reason: Chest Pain Multivitamin [Multivitamins] 1 each PO QAM Metformin HCl [Metformin HCl ER] 1,000 mg PO BID Pregabalin [Lyrica] 75 mg PO QPM Losartan [Cozaar] 50 mg PO QPM Levothyroxine Tab [Synthroid Tab] 175 mcg PO DAILY@0700 Atorvastatin Calcium [Lipitor] 80 mg PO QPM glipiZIDE [Glipizide Xl] 5 mg PO AC BREAKFAST Furosemide 20 mg PO DAILY PRN PRN Reason: FLUID Fluoxetine [PROzac] 20 mg PO QAM Fluticasone 50 Mcg Nasal [place] [Flonase Nasal [place]] 2 spray BOTH NARES DAILY PRN PRN Reason: Allergy Symptoms Cinnamon Bark [Cinnamon] 500 mg PO BID Zolpidem Tartrate [Ambien] 10 mg PO BEDTIME PRN PRN Reason: Sleep Potassium Chloride [Klor-Con 8] 8 meq PO DAILY PRN PRN Reason: TAKE WITH LASIX [place]-3 Fatty Acids [Fish Oil] 1,000 mg PO BID Metoprolol Tartrate 25 mg PO BID Benzonatate 100 mg PO BID PRN PRN Reason: Cough Clopidogrel [Plavix] 75 mg PO QAM Pseudoephedrine [Sudafed] 30 mg PO Q4-6H PRN PRN Reason: Allergy Symptoms Cetirizine/Pseudoephed 5-120 [ZyrTEC D Tab] 1 tablet PO DAILY PRN PRN Reason: Allergy Symptoms Discontinued Aspirin [Ecotrin] 325 mg PO QAM - Follow Up or Referral Follow Up: Isaiah Spears MD [Physician] - 2 Weeks - Forms/Instructions Additional Discharge Instructions: Hold metformin for 48 hours prior to restarting. He may restart metformin on Exam - Constitutional Vitals: Period Temp Pulse Resp BP Sys/Alvarez Pulse Ox Last 24 Hr 96.4 F-98.2 F 55-69 18-20 93-133/50-80 92-100 Discharge Results Procedures and tests throughout hospitalization: Pending Orders 08/31/16 07:03 CL heart Routine Labs on day of discharge: Labs from last 24 hours 08/31/16 08/31/16 08/31/16 11:42 07:37 04:10 WBC RBC Hgb Hct MCV MCH MCHC RDW Plt Count MPV Neut % (Auto) Lymph % (Auto) [place] % (Auto) Eos % (Auto) Baso % (Auto) Neut # (Auto) Lymph # (Auto) [place] # (Auto) Eos # (Auto) Baso # (Auto) Immature Gran % Nucleated RBC % Immature Gran # Nucleated RBCs # Sodium 143 Potassium 3.9 Chloride 107 Carbon Dioxide 27 Anion Gap 12.9 BUN 11 Creatinine 0.90 GFR Calculation 120 BUN/Creatinine Ratio 12.00 Glucose 121 H POC Glucose 133 H 163 H Calculated Osmolality 284.0 Calcium 8.5 Magnesium 2.0 Total Bilirubin AST ALT Alkaline Phosphatase Troponin I Total Protein Albumin Globulin Albumin/Globulin Ratio Triglycerides 147 Cholesterol 111 LDL Cholesterol 61.0 VLDL Cholesterol 29.4 HDL Cholesterol 42 Heart Disease Risk Ratio 2.64 08/31/16 08/30/16 08/30/16 04:10 22:32 20:32 WBC 6.5 RBC 3.47 L Hgb 10.7 L Hct 31.7 L MCV 91.4 MCH 31 MCHC 33.8 RDW 12.8 Plt Count 191 MPV 10.8 Neut % (Auto) 47.7 Lymph % (Auto) 38.5 [place] % (Auto) 8.1 Eos % (Auto) 4.6 Baso % (Auto) 0.6 Neut # (Auto) 3.1 Lymph # (Auto) 2.5 [place] # (Auto) 0.5 Eos # (Auto) 0.3 Baso # (Auto) 0.0 Immature Gran % 0.5 Nucleated RBC % 0.0 Immature Gran # 0.03 Nucleated RBCs # 0.00 Sodium Potassium Chloride Carbon Dioxide Anion Gap BUN Creatinine GFR Calculation BUN/Creatinine Ratio Glucose POC Glucose 177 H Calculated Osmolality Calcium Magnesium Total Bilirubin AST ALT Alkaline Phosphatase Troponin I < 0.015 Total Protein Albumin Globulin Albumin/Globulin Ratio Triglycerides Cholesterol LDL Cholesterol VLDL Cholesterol HDL Cholesterol Heart Disease Risk Ratio 08/30/16 08/30/16 08/30/16 19:12 14:00 14:00 WBC RBC Hgb Hct MCV MCH MCHC RDW Plt Count MPV Neut % (Auto) Lymph % (Auto) [place] % (Auto) Eos % (Auto) Baso % (Auto) Neut # (Auto) Lymph # (Auto) [place] # (Auto) Eos # (Auto) Baso # (Auto) Immature Gran % Nucleated RBC % Immature Gran # Nucleated RBCs # Sodium 141 Potassium 4.3 Chloride 106 Carbon Dioxide 27 Anion Gap 12.3 BUN 8 Creatinine 0.90 GFR Calculation 120 BUN/Creatinine Ratio 8.00 Glucose 128 H POC Glucose Calculated Osmolality 280.3 Calcium 8.9 Magnesium 1.8 Total Bilirubin < 0.39 AST 26 ALT 57 Alkaline Phosphatase 81 Troponin I < 0.015 < 0.015 Total Protein 6.3 L Albumin 3.6 Globulin 2.7 Albumin/Globulin Ratio 1.3 Triglycerides Cholesterol LDL Cholesterol VLDL Cholesterol HDL Cholesterol Heart Disease Risk Ratio DS: Provider Date of admission: 08/30/16 16:32 Primary care physician: Vito Hernández DO Attending physician on admission: Amanda Coles DO Consults: 08/31/16 13:49 Consult to Cardiac Rehabilitation [CONS] Routine Reason for Cardiac Rehabilitation: Risk Factor Modification Discharging clinician: Isaiah Spears MD <Pamela Chong - Last Filed: 08/31/16 15:04> Hospital Course - Time spent with patient Time with patient DS: Less than 30 minutes Diagnosis - Discharge Diagnosis (1) Chest pain Status: Resolved (2) Coronary artery disease Status: Chronic (3) Dyslipidemia Status: Chronic (4) Essential hypertension Status: Chronic (5) Obesity (BMI 30.0-34.9) Status: Chronic (6) Obstructive sleep apnea Status: Chronic Discharge Plan - Discharge Data Condition at Discharge: Stable Discharge Diet: heart healthy Activity: other Hygiene: may shower, other (Post cath expectations) Weight Bearing at Discharge: other (Post cath expectations) Driving: other (Post cath expectations) Contact your physician if you experience:: fever over 101, Difficulty voiding, Redness or swelling, Nausea/Vomiting, Shortness of breath, Bleeding, pain uncontrolled by pain medications Exam - Constitutional Exam: General: Appears well with no apparent distress. Pleasant and cooperative. Appears comfortable. HEENT: PERRL, normocephalic, atraumatic. Mucous membranes moist. No jaundice noted. Conjunctiva moist and clear, sclerae anicteric Neck: No JVD/HJR or lymphadenopathy noted. No carotid bruit appreciated Cardiac: Regular rate and rhythm. No murmur rub or gallop. Lungs: Clear to auscultation without accessory muscle use to assist the respiratory pattern. Not requiring oxygen. Abdomen: Soft, bowel sounds normoactive. Nontender and nondistended. No abdominal bruit or thrill noted. No masses noted. Extremities: No clubbing, cyanosis noted. No edema noted. Upper extremity pulses 2+. Lower extremity pulses 2+. Capillary refill less than 3 seconds. Right groin is soft without bleeding, hematoma and bruit. Distal pulses present. Skin: No unusual lesions or rashes. No skin breakdown appreciated. Neuro: Awake, alert and oriented 3. Moves all extremities well without hemiparesis or paralysis. No essential tremor is appreciated. Discharge Results - Imaging and Cardiology Cardiology Procedure: report reviewed by Procedure: X-ray: report reviewed by DS: Provider Expected date of discharge: 08/31/16
[2016-08-31 18:04] VITALS: BP 106/53
== END 2016-08-31 18:11 | disposition home or self-care (01) | DRG 287 ==
LOC: N.ED 13:12 → N.EDINP 16:32 → N.TELEN 18:05
PROVIDERS: ADMIT Internal Medicine Cardiovascular Disease; ATTEND Internal Medicine Cardiovascular Disease
PROC: CLCCHCL (ICD-10-PCS; 2016-08-31 14:15)

== ENCOUNTER 2017-09-26 19:51 | Inpatient (IN) ==
[2017-09-26] MEDS ORDERED: ASPIRIN 325 MG TABLET PO STA (20:39)
[2017-09-26 21:29] LABS: Basophils # 0.1 10*3/uL (0.0-0.2); Basophils % 0.6 % (0.0-0.8); Eosinophils # 0.1 10*3/uL (0.0-0.87); Eosinophils % 1.6 % (0.00-10.9); Hematocrit 38.6 VOL% (42.0-52.0); Hemoglobin 13.1 GM/DL (14.0-18.0); Immature Granulocytes % 0.8 %; Immature Granulocytes Absolute 0.06 #; Lymphocytes # 2.7 10*3/uL (1.4-4.0); Lymphocytes % 33.8 % (21.2-54.2); Mean Corpuscular HGB Conc 33.9 GM/DL (32-36); Mean Corpuscular Hemoglobin 32 PG (27-34); Monocytes # 0.7 10*3/uL (0.11-0.8); Monocytes % 8.2 % (1.7-12.7); Neutrophils # 4.3 10*3/uL (1.4-7.4); Platelet Count 279 T/CUMM (130-400); Red Blood Count 4.15 MC/CUMM (3.8-5.5); White Blood Count 7.9 T/CUMM (4-12)
[2017-09-26 21:49] LABS: Alanine Aminotransferase 69 U/L (16-61); Albumin 3.8 G/DL (3.4-5.0); Alkaline Phosphatase 76 U/L (45-117); Aspartate Amino Transferase 29 U/L (0-37); Bilirubin,Total < 0.39 MG/DL (0.2-1.0); Blood Urea Nitrogen 21 MG/DL (7-18); Calcium 8.5 MG/DL (8.5-10.1); Glucose 186 MG/DL (74-106); Sodium 136 MMOL/L (136-145); Total Protein 6.8 G/DL (6.4-8.3)
[2017-09-26] MEDS ORDERED: ONDANSETRON 4 MG/2 ML VIAL IV STA (22:50)
[2017-09-27] MEDS ORDERED: ONDANSETRON 4 MG/2 ML VIAL IV PRN (01:00)
[2017-09-27] MEDS ORDERED: PROMETHAZINE 25 MG/1 ML VIAL IM PRN (01:00)
[2017-09-27] MEDS ORDERED: MORPHINE 4 MG/1 ML VIAL IV PRN (01:00)
[2017-09-27] MEDS ORDERED: ZALEPLON 5 MG CAPSULE PO PRN (01:00)
[2017-09-27] MEDS ORDERED: DEXTROSE 50% 25 GM/50 ML VIAL IV PRN ×2 (01:00)
[2017-09-27] MEDS ORDERED: GLUCAGON 1 MG VIAL IM PRN ×2 (01:00)
[2017-09-27] MEDS ORDERED: NITROGLYCERIN SL 0.4 MG TABLET SL PRN (01:00)
[2017-09-27 04:26] LABS: Risk Ratio 2.38; Thyroid Stimulating Hormone 1.12 uIU/ml (0.358-3.74)
[2017-09-27] MEDS: LEVOTHYROXINE 175 MCG TABLET PO SCH (06:00)
[2017-09-27] MEDS ORDERED: DIAZEPAM 5 MG TABLET PO ONE (07:37)
[2017-09-27] MEDS ORDERED: diphenhydrAMINE CAP 25 MG CAPSULE PO ONE (07:37)
[2017-09-27] MEDS ORDERED: ENOXAPARIN 120 MG/0.8 ML SYRINGE SUBCUT ONE (08:14)
[2017-09-27] MEDS ORDERED: SODIUM CHLORIDE 0.9% 1,000 ML IV SCH (09:00)
[2017-09-27] MEDS: DOCUSATE SODIUM 100 MG CAPSULE PO SCH ×2 (11:39→21:13)
[2017-09-27] MEDS: FLUoxetine 20 MG CAPSULE PO SCH (11:41)
[2017-09-27] MEDS: glipiZIDE 5 MG TABLET PO SCH ×2 (11:41→21:13)
[2017-09-27] MEDS: MAGNESIUM CHLORIDE 64 MG TABLET PO SCH ×2 (11:41→21:12)
[2017-09-27] MEDS ORDERED: HEPARIN/NACL 0.9% 2 UNITS/ML 1,000 ML IV ONE (11:49)
[2017-09-27] MEDS ORDERED: LIDOCAINE 1%/EPI INJ 20 ML VIAL ONE (11:49)
[2017-09-27] MEDS: CLOPIDOGREL 75 MG TABLET PO SCH (11:55)
[2017-09-27] MEDS: ASPIRIN EC 81 MG TABLET PO SCH (11:55)
[2017-09-27] MEDS: METOPROLOL TARTRATE 25 MG TABLET PO SCH ×2 (11:56→21:13)
[2017-09-27] MEDS: LOSARTAN 25 MG TABLET PO SCH (11:56)
[2017-09-27] MEDS: PANTOPRAZOLE 40 MG TABLET PO SCH (11:56)
[2017-09-27] MEDS ORDERED: MIDAZOLAM 2 MG/2 ML VIAL ONE ×2 (12:05→12:33)
[2017-09-27] MEDS ORDERED: fentaNYL 100 MCG/2 ML VIAL ONE (12:05)
[2017-09-27] MEDS ORDERED: ADENOSINE 90 MG/30 ML VIAL IV ONE (12:44)
[2017-09-27] MEDS ORDERED: ENOXAPARIN 60 MG/0.6 ML SYRINGE ONE (12:52)
[2017-09-27] MEDS ORDERED: CLOPIDOGREL 300 MG TABLET ONE (13:08)
[2017-09-27] MEDS ORDERED: TERAZOSIN 2 MG CAPSULE PO SCH (21:00)
[2017-09-27] MEDS ORDERED: PREGABALIN 75 MG CAPSULE PO SCH (21:00)
[2017-09-27] MEDS ORDERED: ATORVASTATIN 80 MG TABLET PO SCH (21:00)
[2017-09-28 03:52] LABS: Basophils % 0.7 % (0.0-0.8); Eosinophils # 0.2 10*3/uL (0.0-0.87); Eosinophils % 2.8 % (0.00-10.9); Hematocrit 35.5 VOL% (42.0-52.0); Immature Granulocytes % 1.3 %; Immature Granulocytes Absolute 0.08 #; Mean Corpuscular HGB Conc 33.8 GM/DL (32-36); Mean Corpuscular Hemoglobin 31 PG (27-34); Mean Corpuscular Volume 91.5 FL (87-102); Mean Platelet Volume 10.3 FL (9.6-12.0); Monocytes # 0.5 10*3/uL (0.11-0.8); Monocytes % 8.2 % (1.7-12.7); Neutrophils # 3.2 10*3/uL (1.4-7.4); Platelet Count 255 T/CUMM (130-400); Red Blood Count 3.88 MC/CUMM (3.8-5.5); Red Cell Distribution Width 13.2 % (9.3-17.3)
[2017-09-28 04:37] LABS: Calcium 8.2 MG/DL (8.5-10.1); Osmolality,Calculated 283.4 MOS/KG (273-304); Potassium 4.3 MMOL/L (3.5-5.1)
[2017-09-28 04:41] LABS: Troponin I Only < 0.015 NG/ML (0.00-0.045)
[2017-09-28] MEDS: LEVOTHYROXINE 175 MCG TABLET PO SCH (06:36)
[2017-09-28 08:14] VITALS: BP 122/69
[2017-09-28] MEDS: MAGNESIUM CHLORIDE 64 MG TABLET PO SCH (08:28)
[2017-09-28] MEDS: PANTOPRAZOLE 40 MG TABLET PO SCH (08:28)
[2017-09-28] MEDS: DOCUSATE SODIUM 100 MG CAPSULE PO SCH (08:28)
[2017-09-28] MEDS: LOSARTAN 25 MG TABLET PO SCH (08:28)
[2017-09-28] MEDS: CLOPIDOGREL 75 MG TABLET PO SCH (08:29)
[2017-09-28] MEDS: ASPIRIN EC 81 MG TABLET PO SCH (08:29)
[2017-09-28] MEDS: FLUoxetine 20 MG CAPSULE PO SCH (08:29)
[2017-09-28] MEDS: glipiZIDE 5 MG TABLET PO SCH (08:29)
[2017-09-28] MEDS: METOPROLOL TARTRATE 25 MG TABLET PO SCH (08:29)
[2017-09-28] MEDS ORDERED: ENOXAPARIN 40 MG/0.4 ML SYRINGE SUBCUT SCH (09:00)
== END 2017-09-28 11:08 | disposition home or self-care (01) | DRG 251 ==
LOC: N.ED 19:51 → N.EDINP 23:37 → N.TELEN 09-27 00:26
PROVIDERS: ADMIT Internal Medicine Geriatric Medicine; ATTEND Internal Medicine Geriatric Medicine
PROC: CLCCHCL (ICD-10-PCS; 2017-09-27 12:45)

== ENCOUNTER 2022-03-21 10:34 | Day surgery (SDC) ==
[~2022-03-21 10:34] MED LIST: ASPIRIN 325 MG TABLET PO ONE; DEXTROSE 5% NACL 0.45% 1,000 ML IV SCH; DIAZEPAM 5 MG TABLET PO ONE; MAGNESIUM SULF RIDER 2 GM/50 ML PREMIX IV PRN; POTASSIUM CHLORIDE RIDER 10 MEQ/100 ML PREMIX IV PRN; diphenhydrAMINE CAP 50 MG CAPSULE PO ONE
[2022-03-21 11:37] LABS: Basophils % 0.4 % (0.0-0.8); Eosinophils # 0.3 10*3/uL (0.0-0.87); Eosinophils % 3.4 % (0.00-10.9); Hematocrit 37.3 VOL% (42.0-52.0); Hemoglobin 12.3 GM/DL (14.0-18.0); Immature Granulocytes % 0.9 %; Immature Granulocytes Absolute 0.07 #; Lymphocytes # 1.8 10*3/uL (1.4-4.0); Lymphocytes % 23.2 % (21.2-54.2); Mean Corpuscular Volume 98.4 FL (87-102); Mean Platelet Volume 10.5 FL (9.6-12.0); Monocytes # 0.5 10*3/uL (0.11-0.8); Monocytes % 5.9 % (1.7-12.7); Neutrophils % 66.2 % (38.7-73.9); Platelet Count 242 T/CUMM (130-400); Red Blood Count 3.79 MC/CUMM (3.8-5.5); Red Cell Distribution Width 13.1 % (9.3-17.3); White Blood Count 7.7 T/CUMM (4-12)
[2022-03-21] MEDS ORDERED: ASPIRIN 325 MG TABLET ONE (11:38)
[2022-03-21] MEDS ORDERED: diphenhydrAMINE CAP 50 MG CAPSULE ONE (11:38)
[2022-03-21] MEDS ORDERED: DIAZEPAM 5 MG TABLET ONE (11:38)
[2022-03-21 11:53] LABS: PT Patient Result 10.6 SECS (10.1-12.1)
[2022-03-21 12:08] LABS: Alanine Aminotransferase 43 U/L (16-61); Albumin 3.4 G/DL (3.4-5.0); Alkaline Phosphatase 80 U/L (45-117); Aspartate Amino Transferase 16 U/L (0-37); Bilirubin,Total < 0.39 MG/DL (0.20-1.00); Blood Urea Nitrogen 14 MG/DL (7-18); Calcium 8.9 MG/DL (8.5-10.1); Carbon Dioxide 24 MMOL/L (21-32); Chloride 112 MMOL/L (98-107); Glucose 146 MG/DL (74-106); Potassium 4.2 MMOL/L (3.5-5.1); Sodium 143 MMOL/L (136-145); Total Protein 6.6 G/DL (6.4-8.2)
[2022-03-21] MEDS ORDERED: HEPARIN/NACL 0.9% 2 UNITS/ML 2,000 UNIT/1,000 ML BAG IV ONE (12:44)
[2022-03-21] MEDS ORDERED: MIDAZOLAM 2 MG/2 ML VIAL ONE (13:33)
[2022-03-21] MEDS ORDERED: fentaNYL 100 MCG/2 ML VIAL ONE (13:33)
[2022-03-21] MEDS ORDERED: BENZONATATE 100 MG CAPSULE PO PRN (14:30)
[2022-03-21] MEDS ORDERED: FUROSEMIDE 20 MG TABLET PO PRN (14:30)
[2022-03-21] MEDS ORDERED: POTASSIUM CHLORIDE 10 MEQ TABLET PO PRN (14:30)
[2022-03-21] MEDS ORDERED: NITROGLYCERIN SL 0.4 MG TABLET SL PRN (14:30)
[2022-03-21] MEDS ORDERED: ALBUTEROL 2.5 MG/3 ML NEB RESP TX PRN (14:30)
[2022-03-21] MEDS ORDERED: glipiZIDE 10 MG TABLET PO SCH (16:30)
[2022-03-21 20:06] VITALS: BP 142/84
[2022-03-21] MEDS ORDERED: TERAZOSIN 1 MG CAPSULE PO SCH (21:00)
[2022-03-21] MEDS ORDERED: AZELASTINE NASAL 137 MCG/SPRAY 30 ML BOTTLE BOTH NARES SCH (21:00)
[2022-03-21] MEDS ORDERED: METOPROLOL SUCCINATE XL 25 MG TABLET PO SCH (21:00)
[2022-03-21] MEDS ORDERED: APIXABAN 5 MG TABLET PO SCH (21:00)
[2022-03-21] MEDS ORDERED: ATORVASTATIN 80 MG TABLET PO SCH (21:00)
[2022-03-21] MEDS ORDERED: FLUTICASONE 50 MCG NASAL SPRAY 16 GM BOTTLE BOTH NARES SCH (21:00)
[2022-03-21] MEDS ORDERED: PREGABALIN 75 MG CAPSULE PO SCH (21:00)
[2022-03-22] MEDS ORDERED: LEVOTHYROXINE 175 MCG TABLET PO SCH (06:30)
[2022-03-22] MEDS ORDERED: MULTIVITAMIN (PRENATAL) TABLET PO SCH (09:00)
[2022-03-22] MEDS ORDERED: AMIODARONE 200 MG TABLET PO SCH (09:00)
[2022-03-22] MEDS ORDERED: ASPIRIN EC 81 MG TABLET PO SCH (09:00)
[2022-03-22] MEDS ORDERED: METOPROLOL SUCCINATE XL 25 MG TABLET PO SCH (09:00)
[2022-03-22] MEDS ORDERED: MONTELUKAST 10 MG TABLET PO SCH (09:00)
[2022-03-22] MEDS ORDERED: FLUoxetine 20 MG CAPSULE PO SCH (09:00)
[2022-03-22] MEDS ORDERED: LOSARTAN 25 MG TABLET PO SCH (09:00)
== END 2022-03-22 02:53 | disposition home or self-care (01) ==
LOC: N.TELEN 10:34 → N.CL 10:34 → N.TELEN 14:33 → N.CL 03-22 02:53
PROVIDERS: ATTEND Internal Medicine Interventional Cardiology
PROC: CLCCHCL (ICD-10-PCS; 2022-03-21 13:45)